=== PATIENT | female | born 1985 | race Caucasian/White ===

== ENCOUNTER → 2022-04-30 | Outpatient (CLI) | payer OTHER ==
--- NOTE | 2022-04-30 18:31 | CT ---
EXAMINATION TYPE: CT abdomen pelvis w con DATE OF EXAM: 04/30/2022 HISTORY: generalized abdominal pain and nausea post GB removal early January CT DLP: 517.40mGycm Automated Exposure Control for Dose Reduction was Utilized. CONTRAST: CT scan of the abdomen and pelvis is performed with oral and with IV Contrast, patient injected with 80 mL of Isovue 300. COMPARISON: None. FINDINGS: LUNG BASES: No significant abnormality is appreciated. LIVER/GB: Gallbladder not seen, noted surgically absent. No biliary dilatation identified. PANCREAS: No significant abnormality is seen. SPLEEN: No significant abnormality is seen. ADRENALS: No significant abnormality is seen. KIDNEYS: There are prominent bilateral renal pelvises greater on the left and mild calyceal dilatatio n greater on the left. There is symmetric cortical medullary uptake and excretion without hydroureter noted. BOWEL: Suboptimal evaluation as patient has little intra-abdominal fat and oral contrast does not ethan ch level of terminal ileum. No suspicious small or large bowel dilatation is present. Slightly promin ent fluid-filled terminal ileum noted. Blmx-aw-cybahjee fecal prominence in the right and transverse colon UTERUS/ADNEXA: Anteverted uterus. No free fluid. No suspicious adnexal masses. LYMPH NODES: No greater than 1cm abdominal or pelvic lymph nodes are appreciated. OSSEOUS STRUCTURES: Transitional-type L6 vertebra. OTHER: No significant additional abnormality is seen. IMPRESSION: Mild to moderate proximal colonic fecal stasis. There is no bowel obstruction. Mild left greater than right hydronephrosis but no delayed excretion or hydroureter or distinct renal calculi i dentified.
== END | disposition home or self-care (01) ==
LOC: RADCTMAIN 15:24
PROVIDERS: ATTEND Surgery
DX: N13.30 Unspecified hydronephrosis (principal); K56.41 Fecal impaction
CPT/HCPCS: 74177; Q9967